=== PATIENT | female | born 1950 | race Caucasian/White ===

== ENCOUNTER → 2023-10-13 09:12 | Outpatient (REF) | payer MEDICARE, BC, SELFPAY | LOC: RCS 09:12 | PROVIDERS: ATTENDING PHYSICIAN Nurse Practitioner; FAMILY PHYSICIAN Internal Medicine | DX: R00.2 Palpitations (principal); I10 Essential (primary) hypertension; I35.1 Nonrheumatic aortic (valve) insufficiency | CPT/HCPCS: 93225; 93226 ==

== ENCOUNTER → 2023-12-27 13:11 | Outpatient (REF) | payer MEDICARE, BC, SELFPAY ==
[2023-12-27 14:14] LABS: Urine Albumin Negative (Neg - Trace); Urine Bilirubin Negative (Negative); Urine Character Slightly Cloudy (Clear); Urine Color Yellow; Urine Glucose Negative (Negative); Urine Ketone Negative (Negative); Urine Leukocyte Negative (Negative); Urine Nitrite Negative (Negative); Urine Occult Blood 4+ (Negative); Urine Urobilinogen Negative (Neg - 1+)
[2023-12-27 14:23] LABS: Urine Squamous Cell 0-2 /LPF (Few); Urine White Cell 0-2 /HPF (0-5)
== END ==
LOC: REG 13:11
PROVIDERS: ATTENDING PHYSICIAN Urology; FAMILY PHYSICIAN Internal Medicine
DX: N39.0 Urinary tract infection, site not specified (principal)
CPT/HCPCS: 81003; 81015; 87086

== ENCOUNTER → 2024-01-31 14:07 | Outpatient (REF) | payer MEDICARE, BC, SELFPAY | LOC: HWRAD 14:07 | PROVIDERS: ATTENDING PHYSICIAN Internal Medicine Critical Care Medicine; FAMILY PHYSICIAN Internal Medicine | DX: R91.1 Solitary pulmonary nodule (principal) | CPT/HCPCS: 71250 ==

== ENCOUNTER → 2024-04-07 08:50 | Outpatient (REF) | payer MEDICARE, BC, SELFPAY | LOC: HWRCS 08:50 | PROVIDERS: ATTENDING PHYSICIAN Internal Medicine Cardiovascular Disease; FAMILY PHYSICIAN Internal Medicine | DX: I35.1 Nonrheumatic aortic (valve) insufficiency (principal) | CPT/HCPCS: 93306 ==

== ENCOUNTER → 2024-04-18 09:11 | Outpatient (REF) | payer MEDICARE, BC, SELFPAY | LOC: HWRAD 09:11 | PROVIDERS: ATTENDING PHYSICIAN Urology; FAMILY PHYSICIAN Internal Medicine | DX: N20.0 Calculus of kidney (principal) | CPT/HCPCS: 76775 ==

== ENCOUNTER → 2024-05-03 08:58 | Outpatient (REF) | payer MEDICARE, BC, SELFPAY | LOC: HWRAD 08:58 | PROVIDERS: ATTENDING PHYSICIAN Thoracic Surgery (Cardiothoracic Vascular Surgery); FAMILY PHYSICIAN Internal Medicine; REFERRING PHYSICIAN Internal Medicine Critical Care Medicine | DX: I71.21 Aneurysm of the ascending aorta, without rupture (principal); Z01.810 Encounter for preprocedural cardiovascular examination | CPT/HCPCS: 71275; Q9967 ==

== ENCOUNTER → 2024-06-29 16:28 | Outpatient (REF) | payer MEDICARE, BC, SELFPAY | LOC: RAD 16:28 | PROVIDERS: ATTENDING PHYSICIAN Nurse Practitioner; FAMILY PHYSICIAN Internal Medicine | DX: J20.9 Acute bronchitis, unspecified (principal) | CPT/HCPCS: 71046 ==

== ENCOUNTER → 2024-10-09 09:57 | Outpatient (REF) | payer MEDICARE, BC, SELFPAY | LOC: RCS 09:57 | PROVIDERS: ATTENDING PHYSICIAN Internal Medicine Cardiovascular Disease; FAMILY PHYSICIAN Internal Medicine | DX: I10 Essential (primary) hypertension (principal); I35.1 Nonrheumatic aortic (valve) insufficiency | CPT/HCPCS: 93306 ==

== ENCOUNTER 2025-03-14 18:46 | Emergency (ER) | payer MEDICARE, BC, SELFPAY ==
[2025-03-14 18:51] VITALS: BP 139/74
--- NOTE | 2025-03-14 20:17 | ED.GENMED ---
History of Present Illness
General
Chief Complaint: Visual Problem
Source: patient
Exam Limitations: none
Time Seen by Provider: 03/14/25 20:07
Nursing documentation reviewed up to this point in time: agreed with
History of Present Illness
History of Present Illness:
74-year-old female with a past medical history of hypothyroidism, GERD who presents to the emergency department for evaluation of visual disturbance. Patient reports that since around 11 AM today she noticed that she has visual disturbance in her
left eye. She describes 'a brown box' in the left side of her left visual field. She says that the box is hollow and that it does not obscure her vision. She has not had vision loss. She says she will occasionally have 'wiggly lines' in the left
eye as well. She denies any eye pain. She has not noticed any redness or tearing. She denies any itching of the eye. She denies any trauma or foreign body. She denies any headache. No issues with the right eye. She does not wear contact she
said she uses reading glasses occasionally. She denies any prior procedures in the eyes or any other issues.
Past History
Past History
ED Past Medical History: Other (Kidney stones)
ED Past Surgical History: None
Social History
Tobacco: Non-smoker
Alcohol: None
Drug: None
Living: with family
Employment: Retired
Review of Systems
Review of Systems
All Other Systems: ROS reviewed and negative except as documented in HPI and ROS
EENT: Reports other (Visual disturbance)
Cardiac: Denies palpitations
Neurological: Denies dizzy or headache
Phy Exam
Physical Exam
Physical Exam:
General: Well appearing and non-toxic
Head: Normocephalic atraumatic
Eyes: Visual acuity as documented in nursing note; patient has normal conjunctiva bilaterally; pupils are equal round and reactive to light bilaterally; extraocular movements are intact without pain; no foreign body noted on visual inspection of
both eyes; on fluorescein staining of the eyes no dendritic lesions, no corneal abrasion, negative Wanda sign;
ENT: protecting airway
Neck: appears supple
CV: No evidence of cyanosis
Resp: No accessory muscle use
Abd: Non-distended
Extremities: No deformities
Neuro: Alert
Psych: Normal affect
Skin: Intact
Scores
Heart Failure Risk
Heart Failure Risk Score: Not Applicable
Heart Score for Chest Pain Patients
STEMI patient?: Not applicable
Withdrawal Assessment of Alcohol
Withdrawal Assessment Completed?: Not applicable
Course
Orders/Labs/Results
Orders:
Orders
03/14/25 20:17
Visual Acuity- Treatment ONCE
Vital Signs
Initial and Last Documented VS:
Initial Vital Signs
Temp Pulse Resp BP Pulse Ox
37.2 C 57 18 139/74 100
03/14/25 18:51 03/14/25 18:51 03/14/25 18:51 03/14/25 18:51 03/14/25 18:51
Last Documented Vital Signs
Temp Pulse Resp BP Pulse Ox
37.2 C 57 18 139/74 100
03/14/25 18:51 03/14/25 18:51 03/14/25 18:51 03/14/25 18:51 03/14/25 20:17
MDM/Problems Addressed
Differential Diagnosis Includes:
Ocular migraine, corneal abrasion, foreign body in the eye, retinal detachment
MDM/Problems Addressed:
74-year-old female presents with visual disturbance as described above that she describes floaters and 'brown box' in left visual field. She says that vision is not obscured and there is not been vision loss. She denies headache. She denies any
trauma or injury. Vitals and exam as above.
*Pulse Oximetry
SaO2: 100
Oxygen Mode of Delivery: Room air
Patient hypoxic: no (100%)
*Critical Care Note
Total Time (30-74mins, 75-104mins- exclusive of procedures): Not Applicable
Data Reviewed
Source: patient
ED Attending Note
-
Portions of this chart may have been created with voice recognition software.� Occasional wrong word or��sound alike� substitutions may have occurred due to the inherent limitations of voice recognition software.
Discharge Plan
Departure
Prescriptions:
No Action
hydrocodone-acetaminophen 5-300 mg tablet
1 tab PO Q6H PRN (Reason: Pain) Qty: 14 0RF
ondansetron 4 mg tablet,disintegrating
4 mg PO TIDPRN PRN (Reason: nausea/vomiting) Qty: 14 0RF
ibuprofen 400 mg tablet
400 mg PO Q8H PRN (Reason: fever or pain) Qty: 14 0RF
Interventions
Interventions:
*Risk Screen - Suicide Last Done: 03/14/25 18:51
*General Assessment Last Done: 03/14/25 18:51
*Neglect/Abuse Screening Last Done: 03/14/25 18:51
*ED- Fall Risk Assessment Last Done: 03/14/25 18:51
*ED COVID-19 Vaccine History Last Done: 03/14/25 18:51
Discharge Date and Time
Print Language: [place]ET[place]
== END 2025-03-14 21:30 | disposition home or self-care (01) ==
LOC: EMR 18:46
PROVIDERS: EMERGENCY PHYSICIAN Emergency Medicine; FAMILY PHYSICIAN Internal Medicine
DX: H53.8 Other visual disturbances (principal); E03.9 Hypothyroidism, unspecified; K21.9 Gastro-esophageal reflux disease without esophagitis; R01.1 Cardiac murmur, unspecified; Z87.442 Personal history of urinary calculi; Z88.0 Allergy status to penicillin; Z88.2 Allergy status to sulfonamides
CPT/HCPCS: 99282

== ENCOUNTER → 2025-03-19 10:02 | Outpatient (REF) | payer MEDICARE, BC, SELFPAY | LOC: HWRAD 10:02 | PROVIDERS: ATTENDING PHYSICIAN Urology; FAMILY PHYSICIAN Internal Medicine | DX: N20.0 Calculus of kidney (principal) | CPT/HCPCS: 76775 ==

== ENCOUNTER → 2025-04-19 08:31 | Outpatient (REF) | payer MEDICARE, BC, SELFPAY | LOC: HWRCS 08:31 | PROVIDERS: ATTENDING PHYSICIAN Internal Medicine Cardiovascular Disease; FAMILY PHYSICIAN Internal Medicine | DX: I10 Essential (primary) hypertension (principal); I35.1 Nonrheumatic aortic (valve) insufficiency | CPT/HCPCS: 93306 ==

== ENCOUNTER → 2025-04-25 08:52 | Outpatient (REF) | payer MEDICARE, BC, SELFPAY | LOC: HWRAD 08:52 | PROVIDERS: ATTENDING PHYSICIAN Urology; FAMILY PHYSICIAN Internal Medicine | DX: N20.0 Calculus of kidney (principal) | CPT/HCPCS: 74176 ==